=== PATIENT | male | born 1940 | race Caucasian/White ===

== ENCOUNTER 2020-03-21 01:32 | Outpatient (CLI) | payer MEDICARE, OTHER, SELFPAY ==
[2020-03-21 18:31] LABS: SARS-CoV-2 RNA PCR Negative
== END 2020-03-21 01:33 | disposition home or self-care (01) ==
LOC: ANHCOVIDDT 01:32
PROVIDERS: PCP Family Medicine Adolescent Medicine; Visit Provider Internal Medicine Gastroenterology
DX: Z01.812 Encounter for preprocedural laboratory examination (principal); Z20.828 Contact with and (suspected) exposure to other viral communicable diseases
CPT/HCPCS: 87635; C9803; U0003

== ENCOUNTER 2020-03-25 02:47 | Day surgery (SDC) | payer MEDICARE, OTHER, SELFPAY ==
[2020-03-18 11:43] VITALS: BMI 31.8
[2020-03-25 08:17] VITALS: BP 143/87; PULSE 74; RESP 16; TEMP 36.5; O2SAT 99; BMI 32.9
--- NOTE | 2020-03-25 08:27 | P.CONGI_ITS ---
Assessment and Plan Assessment and plan (1) History of colon polyps: Code(s): Z86.010 - Personal history of colonic polyps Status: Acute Assessment and Plan: Patient has a history of adenomatous colon polyps removed in 2014. Additionally his mother has had colon polyps. For these reasons [facility] [place] colonoscopy is recommended in now and 5 year intervals in the future. (2) Family history of colonic polyps: Code(s): Z83.71 - Family history of colonic polyps Status: Acute GI Consult Note Consult date/time: 03/25/20 08:27 HPI: Fred Black is a 79 year old male Presents for follow-up colonoscopy. Patient has a history of several adenomatous colon polyps removed from the colon 2014. Patient states his current weight appetite bowel movements are normal. Patient denies any blood in his stools. Family history is significant his mother had colon polyps. Review of Systems Review of Systems: All systems reviewed & are unremarkable except as noted in HPI and below PMFSH Social History Social History Smoking packs per day: 1.5 Smoking cigarettes per day: 30.0 Years smoked: 15 Smoking pack-years: 22.50 Smoking status: Former smoker Tobacco type: cigarettes Alcohol intake: current Drinks per week: 15 Substance use: never Substance use type: does not use Living arrangements: with family Spiritual care concerns: No Meds Home Medications and Allergies Home Medications Medication Instructions Recorded Confirmed Type aspirin [Aspir-81] 81 mg PO BID 03/18/20 03/25/20 History atorvastatin 40 mg PO DAILY 03/18/20 03/25/20 History fenofibrate 160 mg PO DAILY 03/18/20 03/25/20 History metoprolol tartrate 25 mg PO BID 03/18/20 03/25/20 History omeprazole 40 mg PO DAILY 03/18/20 03/25/20 History Allergies Allergy/AdvReac Type Severity Reaction Status Date / Time No Known Allergies Allergy Unknown Verified 03/25/20 08:16 Vital Signs Vital Signs - 24 hr 03/25/20 08:17 Temperature 97.7 F Pulse Rate 74 Respiratory Rate 16 Blood Pressure 143/87 H Pulse Oximetry 99 Exam Narrative: Exam Narrative: Physical exam reveals patient be alert. Vital signs stable. HEENT exam is unremarkable. Lungs are clear to auscultation and percussion. Heart is without murmur or extra sounds. Abdominal exam bowel sounds are present soft nontender with no organomegaly. Digital external rectal exam is normal.
[2020-03-25] MEDS: LACTATED RINGERS 1,000 ML 150 ML IV CONT (08:31)
--- NOTE | 2020-03-25 08:46 | WPDANESEPPF ---
Anes - Initial Pre Proc Eval Procedure: Operation Date: 03/25/20 09:30 Proposed Procedures p Screening Colonoscopy - Zack Petersen MD Date/Time: 03/25/20 08:46 Surgeon: Zack Petersen MD Pre Op Diagnosis: hx of colon polyps Patient Data Age: 79 Gender: M Height: 5 ft 8 in Weight: 98.3 kg Last Vital Signs Temp 97.7 F 03/25/20 08:17 Pulse 74 03/25/20 08:17 Resp 16 03/25/20 08:17 BP 143/87 H 03/25/20 08:17 Pulse Ox 99 03/25/20 08:17 Allergies Allergy/AdvReac Type Severity Reaction Status Date / Time No Known Allergies Allergy Unknown Verified 03/25/20 08:16 Home Medications Medication Instructions Recorded Confirmed Type aspirin [Aspir-81] 81 mg PO BID 03/18/20 03/25/20 History atorvastatin 40 mg PO DAILY 03/18/20 03/25/20 History fenofibrate 160 mg PO DAILY 03/18/20 03/25/20 History metoprolol tartrate 25 mg PO BID 03/18/20 03/25/20 History omeprazole 40 mg PO DAILY 03/18/20 03/25/20 History Patient hx anesthesia problems: none Family hx anesthesia problems: none PMFSH Past Medical History Medical History (Updated 03/25/20 @ 08:46 by Juan Berry MD) CAD (coronary artery disease) Hyperlipidemia Hypertension Surgical History Surgical History (Updated 03/25/20 @ 08:46 by Juan Berry MD) S/P CABG x 4 Social History Social History Smoking packs per day: 1.5 Smoking cigarettes per day: 30.0 Years smoked: 15 Smoking pack-years: 22.50 Smoking status: Former smoker Tobacco type: cigarettes Alcohol intake: current Drinks per week: 15 Substance use: never Substance use type: does not use Living arrangements: with family Spiritual care concerns: No Anes - Eval Final PreProcedure Day of Procedure 03/25/20 08:46 Patient weight: obese Heart: regular rate and rhythm Lungs: clear to auscultation Airway: Mallampati scale class III Neurological: alert and oriented Last oral intake: >/= 8 hours ASA classification: III Emergent: no Anesthetic plan: proceed Anesthesia type and monitoring: general GIVS and standard monitoring Informed Consent: The patient's anesthetic plan and its attendant risks and benefits were discussed with the patient/family/POA. Questions were solicited and answers provided to the satisfaction of the patient/family/POA.
[2020-03-25 09:12] VITALS: BP 122/63; PULSE 67; RESP 24; O2SAT 97
[2020-03-25 09:22] VITALS: BP 115/56; PULSE 68; RESP 20; O2SAT 98
[2020-03-25 09:32] VITALS: BP 135/76; PULSE 64; RESP 18; O2SAT 98
== END 2020-03-25 09:47 | disposition home or self-care (01) ==
PROVIDERS: PCP Family Medicine Adolescent Medicine; Visit Provider Internal Medicine Gastroenterology
PROC: 0DJD8ZZ Inspection of Lower Intestinal Tract, Via Natural or Artificial Opening Endoscopic (ICD-10-PCS; CPT 45378; principal; 2020-03-25 09:30)
DX: Z12.11 Encounter for screening for malignant neoplasm of colon (principal); D12.2 Benign neoplasm of ascending colon; K57.30 Diverticulosis of large intestine without perforation or abscess without bleeding; K64.8 Other hemorrhoids; Z83.71 Family history of colonic polyps; I10 Essential (primary) hypertension; E78.5 Hyperlipidemia, unspecified; I25.10 Atherosclerotic heart disease of native coronary artery without angina pectoris; Z95.1 Presence of aortocoronary bypass graft; Z87.891 Personal history of nicotine dependence; E66.9 Obesity, unspecified; Z68.33 Body mass index [BMI] 33.0-33.9, adult
CPT/HCPCS: 45385; 87635; 88305; C9803; J2704; J7120; U0003

== ENCOUNTER → 2020-07-28 04:19 | Outpatient (CLI) | payer MEDICARE, OTHER, SELFPAY ==
[2020-07-28 19:03] LABS: SARS-CoV-2 RNA PCR Negative
== END ==
PROVIDERS: PCP Family Medicine Adolescent Medicine; Visit Provider Internal Medicine Cardiovascular Disease
DX: Z01.812 Encounter for preprocedural laboratory examination (principal); Z20.822 Contact with and (suspected) exposure to COVID-19
CPT/HCPCS: C9803; U0003; U0005

== ENCOUNTER 2020-07-31 02:12 | Day surgery (SDC) | payer MEDICARE, OTHER, SELFPAY ==
[2020-07-30 15:55] VITALS: BMI 31.8
[2020-07-31] VITALS (26 sets, daily range): BP systolic 113–167; BP diastolic 57–99; PULSE 53–88; RESP 11–22; TEMP 36.3–37; O2SAT 94–99
[2020-07-31 07:39] LABS: Basophils Absolute Auto 0.1 K/mm3 (0.0-0.1); Basophils Percent Auto 0.7 % (0.2-1.2); Eosinophils Absolute Auto 0.1 K/mm3 (0-0.3); Eosinophils Percent Auto 1.6 % (0-4.4); Hematocrit 41.7 % (42.0-52.0); Hemoglobin 13.8 g/dL (14.0-18.0); Immature Granulocyte Absolute 0.02 K/mm3 (0.00-0.031); Immature Granulocyte Percent A 0.3 % (0-0.5); Lymphocytes Absolute Auto 1.48 K/mm3 (0.9-3.2); Lymphocytes Percent Auto 20.9 % (18.3-44.2); Mean Corpuscular HGB Conc 33.1 g/dl (32-36); Mean Corpuscular Hemoglobin 30.1 pg (26-34); Mean Corpuscular Volume 90.8 fl (80-100); Mean Platelet Volume 10.4 fl (7.4-10.4); Monocytes Absolute Auto 0.7 K/mm3 (0.1-0.6); Monocytes Percent Auto 9.2 % (2.6-8.5); Neutrophils Absolute Auto 4.8 K/mm3 (1.3-6.7); Neutrophils Percent Auto 67.3 % (45.5-73.1); Platelet Count Result 196 k/mm3 (150-375); Red Blood Count 4.59 M/mm3 (4.6-6.20); Red Cell Distribution Width 14.1 % (11.5-14.5); White Blood Count 7.1 K/mm3 (4.5-10.0)
[2020-07-31 07:52] LABS: Anion Gap 4 mmol/L (8-16); Blood Urea Nitrogen 14 mg/dL (9-20); Calcium 9.2 mg/dL (8.4-10.2); Carbon Dioxide 31 mmol/L (22-30); Chloride 105 mmol/L (98-107); Estimated CRCL calculation 47 ml/min; Estimated Glomerular Filt Rate 53; Glucose 121 mg/dL (75-110); Potassium 4.1 mmol/L (3.4-5.0); Sodium 140 mmol/L (137-145)
--- NOTE | 2020-07-31 08:54 | WPDMODSED ---
Moderate Sedation Note-Pt Data Patient Data Diagnosis: Abnormal stress test, CAD, anginal equivalent Present Complaint: fatigue Procedure to be performed/Plan: left heart catheterization with selective left and right coronary angiography with bypass graft angiography, left ventriculography and hemodynamics and possible percutaneous intervention and stent implantation. Allergies Allergy/AdvReac Type Severity Reaction Status Date / Time No Known Allergies Allergy Unknown Verified 07/30/20 16:04 Home Medications Medication Instructions Recorded Confirmed Type aspirin [Aspir-81] 81 mg PO BID 03/18/20 07/30/20 History atorvastatin 40 mg PO DAILY 03/18/20 07/30/20 History fenofibrate 160 mg PO DAILY 03/18/20 07/30/20 History metoprolol tartrate 25 mg PO BID 03/18/20 07/30/20 History omeprazole 40 mg PO DAILY 03/18/20 07/30/20 History doxylamine succinate [Sleep Aid 25 mg PO DAILY 07/30/20 07/30/20 History (doxylamine)] nitroglycerin 0.4 mg SUBLINGUAL PRN PRN 07/30/20 07/30/20 History Current Medications: Active Medications Sodium Chloride (Normal Saline Iv) 500 mls @ 100 mls/hr IV CONT .Q5H JANETH Sedation/Anesthesia: No previous sedation/anesthesia problems (including family history). [facility] Past Medical History Medical History CAD (coronary artery disease) Hyperlipidemia Hypertension Surgical History Surgical History S/P CABG x 4 Social History Social History Smoking packs per day: 1.5 Smoking cigarettes per day: 30.0 Years smoked: 15 Smoking pack-years: 22.50 Smoking status: Former smoker Tobacco type: cigarettes Alcohol intake: current Drinks per week: 15 Alcohol use details: patient states he drinks 3 beers/day Substance use: never Substance use type: does not use Living arrangements: with family Gender identity (if verbalized by the patient): Male Sexual Orientation (if Verbalized by the Patient): Straight or Heterosexual Spiritual care concerns: No Mod Sed Physical Exam Physical Exam Pre Procedural Exam: Normal: Appearance, Eyes, Ears, Nose, Neck ( supple, normal range of motion), Throat ( posterior hypopharynx clear, nonerythematous), Airway ( normal anatomy, no obstruction), Lungs ( Clear to auscultation bilaterally), Heart Size, Heart Rate, Heart Rhythm, Neuro Exam, Abdomen, Liver, Extremities and Skin Hours since solid foods: 12 Hours since liquid intake: 12 Internal Medicine - PN: Obj Da Vital Signs Vital Signs: Vital Signs - 24 hr 07/31/20 07:21 Temperature 36.3 C L Pulse Rate 73 Respiratory Rate 12 Blood Pressure 151/74 H Pulse Oximetry 98 Meds/Results Medications: Active Medications Generic Name Dose Route Start Last Admin Trade Name Freq PRN Reason Stop Dose Admin Sodium Chloride 500 mls @ 100 mls/hr 07/31/20 07:00 Normal Saline Iv IV CONT .Q5H JANETH Labs CBC & Chem 7: 07/31/20 07:22 07/31/20 07:22 Labs: Laboratory Results - last 24 hr 07/31/20 07/31/20 07:22 07:22 WBC 7.1 RBC 4.59 L Hgb 13.8 L Hct 41.7 L MCV 90.8 MCH 30.1 MCHC 33.1 RDW 14.1 Plt Count 196 MPV 10.4 Immature Gran % (Auto) 0.3 Neut % (Auto) 67.3 Lymph % (Auto) 20.9 [place] % (Auto) 9.2 H Eos % (Auto) 1.6 Baso % (Auto) 0.7 Lymph # (Auto) 1.48 [place] # (Auto) 0.7 H Eos # (Auto) 0.1 Baso # (Auto) 0.1 Abs Immat Gran (auto) 0.02 Absolute Neuts (auto) 4.8 Absolute Nucleated RBC 0.0 Nucleated RBC % 0.0 Sodium 140 Potassium 4.1 Chloride 105 Carbon Dioxide 31 H Anion Gap 4 L BUN 14 Creatinine 1.30 Estim Creat Clear Calc 47 Estimated GFR 53 L Glucose 121 H Calcium 9.2 ASA Classification/Sedation ASA Classification/Sedation ASA Class: III Emergent: No Risks: Risks, benefits and
--- NOTE | 2020-07-31 08:55 | WPDHPUPDATE1 ---
History and Physical Update Update Date/Time: 07/31/20 08:55 History and Physical has been reviewed, including an updated exam of the patient. There are NO changes in the patient's condition. Risks, benefits, and alternatives have been discussed and questions answered. Patient agrees to proceed with procedure.
--- NOTE | 2020-07-31 08:56 | PM.PROC ---
Procedure Note - Detailed Date of procedure: 07/31/20 Pre-op diagnosis: abnormal stress test CAD, anginal equivalent Post-op diagnosis: same ( CAD status post CABG, abnormal stress) Procedure performed: left heart catheterization with selective left and right coronary angiography with bypass graft angiography, left ventriculography and hemodynamics Description of procedure: BRIEF HISTORY OF PRESENT ILLNESS: Patient is a pleasant 80-year-old white male with a past medical history significant for 3 vessel CABG 2009 PAULINO to LAD, SVG to OM, SVG to RCA, hypertension, dyslipidemia with progressive complaints of exertional dyspnea, fatigue and decreased exercise tolerance but without chest pain. He underwent noninvasive ischemic evaluation with EF 54% with apical, apical anterior hypokinesis with [id number] reversible ischemia apex, apical anterior, apical lateral, apical septal delatorre referred for coronary angiography for delineation of coronary anatomy and bypass graft patency. PROCEDURES PERFORMED: 1. Left heart catheterization 2. Selective left and right coronary angiography 3. Bypass graft angiography 3. Left ventriculography and hemodynamics 4. Moderate/conscious sedation administration CATHETERS UTILIZED: Left coronary system- 5 [place] JL4 catheter Right coronary system- 5 [place] JR4 catheter Left ventriculography and hemodynamics- 5 [place] angled pigtail catheter PROCEDURE IN DETAIL: After verbal and written informed consent was obtained the patient, risks, benefits, and alternatives explained in detail the patient agreed to proceed with the plan of care as outlined above. The patient was subsequently brought to the cardiac catheterization lab, placed on the cardiac catheterization table, and prepped and draped in the usual sterile fashion. Utilizing approximately 16cc of 1% subcutaneous Lidocaine, the right groin was then locally anesthetized. Utilizing the modified Seldinger technique, a 5 [place] arterial vascular access sheath was inserted in the right common femoral artery easily and without complications. Through this access, coronary angiography was subsequently obtained in multiple standard re-projections. Following this, a 5 [place] angled pigtail catheter was advanced retrograde across aortic valve into the cavity of the left ventricle. Left ventriculography was performed and pullback across aortic valve was subsequently recorded. The vascular access sheath and angiographic catheters were flushed before and after catheter exchanges. At the conclusion of the diagnostic portion of the procedure, all angiographic guidewires and catheters were removed and the 5 [place] arterial vascular access sheath was then pulled and satisfactory hemostasis was achieved using manual compression. There no complications noted at the conclusion of the diagnostic portion of the study. MODERATE SEDATION/ANESTHESIA ADMINISTRATION: Patient reports no prior problems with sedation/anesthesia. Please see pre-sedation noted for physical examination documentation. Sedation start time was 0906 and end time was 1018 for a total intra-service/procedure face-face time of 72 minutes. A total of 2 mg intravenous Versed and a total of 50 mcg intravenous Fentanyl in multiple divided doses was administered for moderate sedation. Moderate sedation was administered by qualified/certified observer Skye Birmingham RN under my supervision with intra-procedure [id number] observation and management throughout the entirety of the procedure. There were no other issues or complications and patient tolerated the procedure well. See post-anesthesia documentation. Anesthesia: local and other ( conscious/moderate sedation) Surgeon: Juice Agudelo MD Drains: No Packing: No Pathology: none sent Complications: No immediate complications Condition: stable Disposition: same day Findings: CORONARY ANGIOGRAPHY: The LEFT MAIN arose from the left coronary cusp and was without
[2020-07-31] MEDS: SODIUM CHLORIDE 0.9% IV 1,000 ML 125 ML IV CONT (10:30)
--- NOTE | 2020-07-31 10:57 | ECG_ITS ---
Measurements Intervals [place] Rate: 58 P: 41 ID: 215 QRS: -3 QRSD: 113 T: 24 QT: 426 QTc: 419 Interpretive Statements SINUS BRADYCARDIA WITH FIRST DEGREE AV BLOCK INCOMPLETE RIGHT BUNDLE BRANCH BLOCK ABNORMAL ECG Electronically Signed On 07-31-2020 15:55:17 CDT by Herson Simental D.O.
--- NOTE | 2020-07-31 11:02 | WPDCARDPROC ---
Cardiac Cath Procedure Note Date of procedure:: 07/31/20 Performing physician:: Alex Thomas MD Indication:: Coronary artery disease, chest pain, abnormal nuclear stress test Brief clinical history:: this is a 80-year-old man with multivessel coronary disease with previous bypass grafting in the remote past. He underwent an angiogram a short time ago by Dr. Agudelo. the exam demonstrated a high-grade stenosis in the distal anastomosis of his vein graft to his distal OM circumflex branch. PCI of this lesion was requested. Procedure Procedure performed:: PCI (BRENT) to distal circumflex vein graft anastomosis. Sedation/Medication given:: No additional sedation given Access site:: right femoral artery Estimated blood loss:: 15-20 cc Procedure note:: I entered the r&d lab technician the patient was already on the table from the diagnostic angiogram. The 5 [place] sheath was changed out over a guidewire for a 6 [place] sheath. The patient then received aspirin, 600 mg of oral clopidogrel and was anticoagulated with Angiomax for this intervention. I engaged the saphenous vein graft to the circumflex using a 6 [place] JR4 guiding catheter. I used a 0.014 BMW coronary guidewire to traverse the length of the graft the distal anastomosis and advance the wire into the OM branch. Following this I pre-dilated the stenosis with a 2.0 mm by 15 mm emerge PTCA balloon. The lesion was rather firm and took 12 atmospheres of pressure to resolve the stenosis. The balloon was then withdrawn and I advanced a 2.5 x 13 mm Orsiro drug-eluting stent to the target lesion deployed at nominal pressures and follow-up angiogram shows the lesion to be widely patent there is no residual stenosis disruption dissection or distal embolization. There was AMBER 3 flow in vein graft and in the OM branch to which it is anastomosed following the PCI. Findings:: As above Conclusion:: 1. successful PCI deploying Orsiro drug-eluting stent to the site of the distal anastomosis of the saphenous vein graft into the distal OM branch as detailed above. Procedure was angiographically successful with no residual stenosis at the site of the target lesion. Alex Thomas MD [facility]
--- NOTE | 2020-07-31 16:02 | SUR.PHASEII ---
Continued documentation in PCS, for extended recovery post PCI.
--- NOTE | 2020-07-31 17:32 | ADMGEN ---
This patient, Fred Black, was admitted to IMU Room 200-01. Patient/family oriented to hospital policies and general routines including ID bracelet, bed and alarms, visiting hours, pain management, procedures, bathroom and other care routines, personal items, smoking policy, room service/diet, and visiting hours. Information on how to activate the Rapid Response Team has been discussed. Patient/Family are encouraged to report perceived risks to care and to ask questions if they do not understand what they are told or what they should do.
[2020-07-31] MEDS: METOPROLOL TARTRATE 25 MG TABLET PO (23:01)
[2020-08-01] VITALS (8 sets, daily range): BP systolic 127–131; BP diastolic 55–71; PULSE 60–82; RESP 18–24; TEMP 35.9–36.2; O2SAT 99–100
[2020-08-01 04:58] LABS: Hematocrit 37.1 % (42.0-52.0); Hemoglobin 12.4 g/dL (14.0-18.0); Mean Corpuscular HGB Conc 33.4 g/dl (32-36); Mean Corpuscular Hemoglobin 30.2 pg (26-34); Mean Corpuscular Volume 90.5 fl (80-100); Platelet Count Result 173 k/mm3 (150-375); Red Cell Distribution Width 13.9 % (11.5-14.5); White Blood Count 8.5 K/mm3 (4.5-10.0)
--- NOTE | 2020-08-01 05:11 | ECG_ITS ---
Measurements Intervals [place] Rate: 76 P: 7 [place]: 183 QRS: -3 QRSD: 88 T: 12 QT: 404 QTc: 455 Interpretive Statements SINUS RHYTHM ATRIAL AND VENTRICULAR PREMATURE COMPLEXES AND VENTRICULAR BIGGEMINY LEFT VENTRICULAR HYPERTROPHY WITH ST-T CHANGE ABNORMAL ECG Electronically Signed On 08-01-2020 9:23:03 CDT by Herson Simental D.O.
[2020-08-01 05:16] LABS: Anion Gap 4 mmol/L (8-16); Blood Urea Nitrogen 15 mg/dL (9-20); Calcium 8.7 mg/dL (8.4-10.2); Carbon Dioxide 30 mmol/L (22-30); Chloride 104 mmol/L (98-107); Estimated CRCL calculation 50 ml/min; Estimated Glomerular Filt Rate 59; Glucose 107 mg/dL (75-110); Sodium 138 mmol/L (137-145)
[2020-08-01] MEDS: FENOFIBRATE 160 MG TABLET PO (09:12)
[2020-08-01] MEDS: ATORVASTATIN 40 MG TABLET PO (09:12)
[2020-08-01] MEDS: PANTOPRAZOLE 40 MG TABLET PO (09:12)
[2020-08-01] MEDS: CLOPIDOGREL BISULFATE 75 MG TABLET PO (09:12)
[2020-08-01] MEDS: METOPROLOL TARTRATE 25 MG TABLET PO (09:12)
[2020-08-01] MEDS: ASPIRIN 81 MG CHEWABLE TABLET PO (09:12)
--- NOTE | 2020-08-01 09:30 | PM.PNCARD ---
Progress Note: A&P Assessment and Plan (1) CAD (coronary artery disease): Code(s): I25.10 - Atherosclerotic heart disease of [place] coronary artery without angina pectoris Status: Inactive Assessment and Plan: Stable, asymptomatic. Status post 2.5 x 13 mm Orsiro BRENT to [place] OM2 without complication. Continue dual antiplatelet therapy. Aggressive medical risk modification. Stable and improved condition. Discharge home today follow up as scheduled as an outpatient. Post intervention precautions reviewed in detail. All questions answered to his satisfaction. Discussed the absolute importance of compliance with dual antiplatelet therapy without interruption under any circumstances. Monitor for bleeding. (2) Status post coronary artery bypass graft: Code(s): Z95.1 - Presence of aortocoronary bypass graft Status: Acute Assessment and Plan: Three of 3 patent bypass grafts (3) Status post coronary artery stent placement: Code(s): Z95.5 - Presence of coronary angioplasty implant and graft Status: Acute Assessment and Plan: As above. (4) Hyperlipidemia: Code(s): E78.5 - Hyperlipidemia, unspecified Status: Inactive Assessment and Plan: Statin therapy. (5) Hypertension: Code(s): I10 - Essential (primary) hypertension Status: Inactive Assessment and Plan: Controlled. Continue current medical therapy. Subjective Date/time seen: Date of service: 08/01/20 09:30 Follow-up for CAD status post percutaneous intervention and stent implantation to [place] circumflex/OM2 No issues overnight. Had difficulty sleeping due to the discomfort in the bed. No chest pain, shortness of breath. No dizziness. Tolerating medications. No bleeding. No other concerns. No fevers or chills. Ambulating without difficulty. Review of Systems Review of Systems: All systems reviewed & are unremarkable except as noted in HPI and below Constitutional: Constitutional: Reports as per HPI and Reports no additional constitutional complaints Eyes: Eyes: Reports as per HPI and Reports no additional eye complaints ENT: Reports system reviewed and no additional complaints, except as documented and Reports as per HPI Cardiovascular: Cardiovascular: Reports as per HPI and Reports no additional cardiovascular complaints Respiratory: Respiratory: Reports as per HPI and Reports no additional respiratory complaints Gastrointestinal: Gastrointestinal: Reports as per HPI and Reports no additional gastrointestinal complaints Genitourinary: Genitourinary: Reports no additional male genitourinary complaints and Reports as per HPI Musculoskeletal: Musculoskeletal: Reports no additional musculoskeletal complaints and Reports as per HPI Integumentary/Breasts: Skin/Breast: Reports system reviewed and no additional complaints, except as docu and Reports as per HPI Neurologic: Reports system reviewed and no additional complaints, except as documented and Reports as per HPI Psychiatric: Psychiatric: Reports no additional psychiatric complaints and Reports as per HPI Endocrine: Endocrine: Reports no additional endocrine complaints and Reports as per HPI Hematologic/Lymphatic: Hematologic/Lymphatic: Reports no additional hematologic/lymphatic complaints and Reports as per HPI Allergic/Immunologic: Allergic/Immunologic: Reports no additional allergic/immunologic complaints and Reports as per HPI Exam Narrative: Exam Narrative: General: Well developed, alert and oriented x3. No apparent distress, comfortable, pleasant, and cooperative. Head: atraumatic, normocephalic Eyes: EOM intact, sclerae anicteric, conjunctivae unremarkable Ears/Nose: external inspection of ears and nose were grossly normal Mouth/Throat: oral mucosa pink and moist Neck: supple, normal range of motion, no jugular venous distention or carotid bruits, thyroid nonpalpable, trachea midline. Cardiac:
--- NOTE | 2020-08-01 09:50 | PM.DS ---
DS: Admitting Diagnosis Admitting Diagnosis Admitting Diagnosis: Abnormal stress test, CAD, anginal equivalent DS: Discharge Diagnosis Discharge Diagnosis (1) Status post coronary artery bypass graft: Code(s): Z95.1 - Presence of aortocoronary bypass graft Status: Acute (2) Status post coronary artery stent placement: Code(s): Z95.5 - Presence of coronary angioplasty implant and graft Status: Acute (3) CAD (coronary artery disease): Code(s): I25.10 - Atherosclerotic heart disease of [place] coronary artery without angina pectoris Status: Acute (4) Hyperlipidemia: Code(s): E78.5 - Hyperlipidemia, unspecified Status: Acute (5) Hypertension: Code(s): I10 - Essential (primary) hypertension Status: Acute DS: Summary Hospital Course Reason for hospitalization: Abnormal stress test, CAD, anginal equivalent elective coronary angiogram Hospital Course: Patient was brought in as an outpatient for elective coronary angiogram due to abnormal stress test suggestive of apical anterior, apical septal, apical lateral ischemia progressive exercise intolerance, exertional dyspnea and fatigue. Coronary angiogram revealed 3 of 3 patent bypass grafts with severe 3 vessel [place] disease with FLOORING SALESP[employer] of LAD, circumflex, and RCA. There was a 90% stenosis in the [place] OM 2 just distal to the anastomosis of the SVG to OM. Patient underwent successful stent implantation with a 2.5 x 13 mm Conjecta BRENT without complication. Patient was observed overnight without issue. Right groin was soft, without bruit, hematoma or bleeding complications. He had no anginal symptoms and was feeling improved. Patient was stable and improved for discharge home. Post cardiac catheterization precautions were reviewed in detail. His avoid sexual activity or strenuous activity for 1-2 weeks. Status at Discharge Cognitive/behavioral status at discharge: Competent Functional status at discharge: independent ambulation Overall status at discharge: patient is back to baseline Time Spent with Patient Time attestation: Total time spent providing and/or coordinating discharge services: 32 minutes Time spent: Greater than 30 minutes Exam Narrative: Exam Narrative: General: Well developed, alert and oriented x3. No apparent distress, comfortable, pleasant, and cooperative. Head: atraumatic, normocephalic Eyes: EOM intact, sclerae anicteric, conjunctivae unremarkable Ears/Nose: external inspection of ears and nose were grossly normal Mouth/Throat: oral mucosa pink and moist Neck: supple, normal range of motion, no jugular venous distention or carotid bruits, thyroid nonpalpable, trachea midline. Cardiac: Regular rate and rhythm, normal S1-S2, no murmurs, clicks, gallops, or rubs. Lungs: Clear to auscultation bilaterally, no rales, wheezes, or rhonchi. Abdomen: Soft, nontender, nondistended, positive bowel sounds throughout. No appreciable hepatosplenomegaly, no rebound guarding or rigidity noted. Abdominal aorta nonpalpable, no appreciable bruits. Extremities: No edema, clubbing, and or cyanosis. Extremities warm and well perfused. Right femoral arterial access site soft, no hematoma or bruising. 2+ femoral pulse no bruit 2+ DP pulse. Skin: Warm and dry without ecchymoses, rashes, and/or petechiae. Musculoskeletal: Muscle strength and tone intact throughout without obvious deformities. Vascular: Carotid upstrokes 2+ bilaterally, radial pulses 2+ bilaterally, dorsalis pedis pulses 2+ bilaterally Neurologic: Cranial nerves 2-12 grossly intact, examination grossly nonfocal Pscyhiatric: Mood calm and appropriate. DS: Data Data Completed and Pending Labs on day of discharge: Labs from last 24 hours 08/01/20 08/01/20 04:14 04:14 WBC 8.5 RBC 4.10 L Hgb 12.4 L Hct 37.1 L MCV 90.5 MCH 30.2 MCHC 33.4 RDW 13.9 Plt Count 173 MPV 11.0 H Sodium 138 Pot
--- NOTE | 2020-08-01 12:06 | PC.NURSE ---
Patient discharged 08/01/20 at 11:27 via wheelchair to spouse's car. No complaints of chest pain or shortness of breath at this time. Medication education and follow-up instructions were explained and patient has no further questions at this time.
== END 2020-08-01 11:34 | disposition home or self-care (01) ==
LOC: ANHCATHLAB 06:51 → ANHCPC 16:14 → ANHIMU 17:34
PROVIDERS: Specialist; PCP Family Medicine Adolescent Medicine; Visit Provider Internal Medicine Cardiovascular Disease
PROC: 4A023N7 Measurement of Cardiac Sampling and Pressure, Left Heart, Percutaneous Approach (ICD-10-PCS; CPT 93452; principal; 2020-07-31 08:30)
PROC: (CPT 92928; 2020-07-31 08:30)
DX: I25.10 Atherosclerotic heart disease of native coronary artery without angina pectoris (principal); R94.39 Abnormal result of other cardiovascular function study; Z79.82 Long term (current) use of aspirin; E78.5 Hyperlipidemia, unspecified; I10 Essential (primary) hypertension; Z87.891 Personal history of nicotine dependence; Z95.1 Presence of aortocoronary bypass graft
CPT/HCPCS: 36415; 80048; 85025; 85027; 93005; 93458; A9270; C1725; C1769; C1874; C1887; C1894; C9600; C9803; J0461; J0583; J1644; J2250; J3010; J7030; J7040; U0003; U0005

== ENCOUNTER 2020-12-10 08:30 | Outpatient (RCR) | payer MEDICARE, OTHER, SELFPAY ==
[2020-09-18 09:04] VITALS: PULSE 60
== END 2020-12-10 11:31 | disposition home or self-care (01) ==
LOC: ANHCPREHAB 08:30
PROVIDERS: PCP Family Medicine Adolescent Medicine; Visit Provider Nurse Practitioner Adult Health
DX: Z95.5 Presence of coronary angioplasty implant and graft (principal)
CPT/HCPCS: 93798

== ENCOUNTER 2022-02-22 14:17 | Outpatient (CLI) | payer MEDICARE, OTHER, SELFPAY ==
--- NOTE | ~2022-02-22 | US_ITS ---
EXAMINATION: US art doppler w deepti PANTOJA DATE: 02/22/2022 15:36 INDICATION: Claudication in the bilateral lower limbs TECHNIQUE: Segmental pressures and plethysmographic and Doppler waveforms of the brachial and lower e xtremity arteries were obtained. COMPARISON: None. FINDINGS: Right and left brachial artery pressures of 157 mm Hg and 145 mm Hg, respectively, are concordant (no rmal difference <= 30 mmHg). The right and left high-thigh pressure indices are unable to be obtained due to inability to occlude the vessels. Bilateral ankle-brachial indices (STACI) are also unable to b e obtained due to inability to occlude the vessels at either ankle. The right great toe-brachial index (TBI) is 0.39 (normal >= 0.6-0.8). Arterial waveforms are biphasi c with brisk systolic upstrokes throughout the arteries of the right lower limb. The left TBI is 0.83. Arterial waveforms are biphasic with brisk systolic upstrokes throughout the ar teries of the left lower limb. IMPRESSION: 1. Arterial occlusive disease to the right lower limb with moderately decreased right TBI with normal left TBI. Of note many of the vessels in the bilateral lower limbs were unable to be occluded which could be due to vessel wall calcification. Reviewed, dictated and finalized at location B. IMPRESSION: 1. Arterial occlusive disease to the right lower limb with moderately decreased right TBI with normal left TBI. Of note many of the vessels in the bilateral l ower limbs were unable to be occluded which could be due to vessel wall calcifi cation.
== END 2022-02-22 14:18 | disposition home or self-care (01) ==
PROVIDERS: PCP Family Medicine Adolescent Medicine; Visit Provider Internal Medicine Cardiovascular Disease
DX: I73.9 Peripheral vascular disease, unspecified (principal)
CPT/HCPCS: 93923

== ENCOUNTER 2024-08-22 00:45 | Day surgery (SDC) | payer MEDICARE, OTHER, SELFPAY ==
[2024-08-21 09:11] VITALS: BMI 27.3
--- NOTE | 2024-08-21 14:14 | WPDANESEPPF ---
Anes - Initial Pre Proc Eval Procedure: Operation Date: 08/22/24 11:30 Proposed Procedures p Esophagogastroduodenoscopy - Jerome Carias MD Date/Time: 08/21/24 14:14 Surgeon: Jerome Carias MD Pre Op Diagnosis: Gastro-esophageal reflux disease without esophagit Patient Data Age: 84 Gender: M Height: 1.73 m Weight: 81.7 kg Allergies Allergy/AdvReac Type Severity Reaction Status Date / Time No Known Allergies Allergy Unknown Verified 08/22/24 10:45 Home Medications ?Medication ?Instructions ?Recorded ?Confirmed ?Type aspirin 81 mg tablet,delayed 81 mg PO BID 03/18/20 08/22/24 History release atorvastatin 40 mg tablet 40 mg PO DAILY 03/18/20 08/22/24 History fenofibrate 160 mg tablet See Rx Instructions .Route 01/30/24 08/22/24 Rx .COMPLEX #90 tabs alprazolam 0.5 mg tablet (Xanax) 0.25 mg (1/2 x 0.5 mg) PO HS PRN 06/18/24 08/21/24 Rx Sleep, anxiety 30 days #15 tabs doxylamine succinate 25 mg tablet 25 mg PO QHS PRN sleep 06/18/24 08/21/24 History (Nighttime Sleep-Aid (doxylamine)) metoprolol succinate 25 mg 25 mg PO DAILY #90 tabs 06/18/24 08/22/24 Rx tablet,extended release 24 hr (Toprol XL) omeprazole 40 mg capsule,delayed 40 mg PO DAILY 90 days #90 caps 07/17/24 08/22/24 Rx release lisinopril 2.5 mg tablet 2.5 mg PO DAILY #30 tabs 07/19/24 08/22/24 Rx escitalopram oxalate 5 mg tablet See Rx Instructions .Route 08/06/24 08/22/24 Rx .COMPLEX #90 tabs famotidine 20 mg tablet (Acid 20 mg PO DAILY 08/21/24 08/22/24 History Controller) Patient hx anesthesia problems: none Family hx anesthesia problems: none Results Review: All pre-operative results and documents have been reviewed as part of the pre-operative evaluation. [facility] Past Medical History Medical History (Updated 08/21/24 @ 14:14 by Jose L Mann DO) PVC (premature ventricular contraction) Family history of colonic polyps GERD (gastroesophageal reflux disease) Depression CAD (coronary artery disease) Hyperlipidemia History of colon polyps Surgical History Surgical History (Updated 08/21/24 @ 14:14 by Jose L Mann DO) History of coronary artery stent placement 2020 S/P CABG x 4 (2008) Family History Family History Sibling Diabetes mellitus Father Pancreatic cancer Mother Alzheimer disease Social History Social History (Updated 08/22/24 @ 10:56 by Jose L Mann DO) Smoking packs per day: 1 Smoking cigarettes per day: 20.0 Years smoked: 20 Smoking pack-years: 20.00 Smoking status: Never smoker Tobacco type: cigarettes Alcohol intake: former Drinks per week: 15 Alcohol use details: patient states he drinks 3 beers/day, quit 2023 Substance use: never Substance use type: does not use Living arrangements: alone Gender identity (if verbalized by the patient): Male Sexual Orientation (if Verbalized by the Patient): Straight or Heterosexual Spiritual care concerns: No Anes - Eval Final PreProcedure Day of Procedure 08/21/24 14:14 Patient weight: overweight Heart: regular rate and rhythm Lungs: clear to auscultation Airway: Mallampati scale class II Neurological: alert and oriented Last oral intake: >/= 8 hours ASA classification: III Emergent: no Anesthetic plan: proceed Anesthesia type and monitoring: general GIVS and standard monitoring Results Review: All pre-operative results and documents have been reviewed as part of the pre-operative evaluation. Informed Consent: The patient's anesthetic plan and its attendant risks and benefits were discussed with the patient/family/POA. Questions were solicited and answers provided to the satisfaction of the patient/family/POA.
--- OUTSIDE RECORDS SUMMARY | 2024-08-22 00:48 | XMS_ITS | Clinical Summary ---
Author Organization [facility] [place] [address] Address [address] [place] [address] Care Team Providers Care Diamond Broker Name Role Phone Michi Sanchez MD Primary Care Prov ider Allergies No known active allergies Medications nitroglycerin (NITROSTAT) 0.[address] 1 tablet (0.4MG) by sublingual route at the 1st sign of attack; may repeat every 5 min until relief; if pain persists after 3 tablets in 15 min, prompt medical attention is recommended 0 2 Active fenofibrate (TRIGLIDE) 160 mg tablet take 1 tablet (160MG) by oral route every day 0 2 Active omega-3 fatty acids/fish oil (OMEGA 3 FISH OIL ORAL) Take 1,000 mg by mouth Active aspirin 81 mg chewable tabletIndicati ons:Coronary artery disease involving resighini coronary artery of resighini heart without angina pectoris Take 1 tablet (81 mg total) by mouth nightly 0 1 Active ALPRAZolam (XANAX) 0.5 mg tablet 0.5 tablets (0.25 mg total) [address] (PROTONIX) 40 mg EC tablet 4 Active atorvastatin (LIPITOR) 40 mg tablet TAKE 1 TABLET DAILY 90 tablet 2 5 Active escitalopram (LEXAPRO) 5 mg tablet Take 1 tablet (5 mg total) by mouth daily 5 Active lisinopriL (PRINIVIL,ZEST RIL) 2.5 mg tablet 5 Active metoprolol XL (TOPROL-XL) 25 mg extended release tablet Take 1 tablet (25 mg total) by mouth daily 5 Active metoprolol tartrate (LOPRESSOR) 25 mg immediate release tablet TAKE 1 TABLET BY MOUTH TWICE A DAY 180 tablet 3 5 08/21/19 25 Discontin ued(Patie nt Reported) Active Problems Problem Noted Date Diagnosed Date Atherosclerosis of resighini ar alissa of both lower extremities with intermittent claudication 03/09/2022 PVD (peripheral vascular disease) 02/08/2022 Assessment & Plan (03/09/2022 5:10 PM SAFETY SUPERVISOR): Impression: Patient complains of burning pain to bilateral calves, left lower extremity is worse than the right after walking approximately 100 yd that is relieved with rest. Patient's symptoms occurred approximately 1 year ago. Bilateral lower extremities are warm, well perfused with palpable bilateral femoral pulses and diminished distal pulses. No open ulcerations are noted. Plan: We will obtain lower extremity arterial Doppler within 1-2 weeks. We will call patient with results. Advised patient if Doppler results are concerning, we will require follow-up appointment otherwise patient can follow-up in 6 months for re-evaluation with repeat arterial Doppler. Mixed hyperlipidemia 05/13/2021 Assessment & Plan (03/09/2022 5:10 PM SAFETY SUPERVISOR): Impression: Chronic stable hyperlipidemia, controlled with statin therapy. Plan: Continue statin therapy as per primary care provider. S/P coronary artery stent placement 01/06/2021 Facet arthritis of lumbar region 03/27/2018 Lumbar disc herniation 03/27/2018 Coronary artery disease invo lving resighini coronary artery of resighini heart without angina pectoris 07/13/2016 Overview (09/16/2016): Coronary artery disease involving resighini coronary artery of resighini heart without angina pectoris History of coronary artery bypass surgery 2016 Overview (09/16/2016): S/P CABG (coronary artery bypass graft) Benign hypertension 07/13/2016 Overview (09/16/2016): HTN (hypertension), benign Assessment & Plan (03/09/2022 5:10 PM SAFETY SUPERVISOR): Impression: Chronic hypertension, controlled medications. Blood pressure stable. Plan: Continue blood pressure management as per primary care provider. Resolved Problems Problem Noted Date Diagnosed Date Resolved Date Dyslipidemia 07/13/2016 05/13/2021 Overview (09/16/2016): Dyslipidemia Encounters Date Type Department Care Team Description 08/21/2024 Telephone [facility] Cardiology [address] [place] [address] Alex Thomas MD 08/20/2024 1:45 PM CDT Office Visit [facility] Cardiology [address] [place] [id number] Alex Thomas MD Coronary artery disease involving resighini coronary artery of resighini heart without angina pectoris (Primary Dx); History of coronary artery bypass surgery; S/P coronary artery stent placement from Last 3 Months Immunizations Immunization Administration Dates Next Due Influenza, Trivalent, Preservative Free, Intramu scular 02/23/2016 Pfizer SARS-CoV-2 Monovalent Vaccination (12+ Yrs) PURPLE 06/19/2020 Surgical History Surgery Date Site/Laterality Comments CORONARY ARTERY BYPASS GRAFT 2008 Coronary Artery Bypass Graft Medical History Medical History Date Comments Chronic coronary artery disease Coronary Artery Disease Hypertension Hypertension Covid Hyperlipidemia Family History Medical History Relation Name Comments Pancreatic cancer Father Alzheimer's disease Mother Heart attack Mother's Brother 2 Myocardia l Infarction; Relation Name Status Comments Father Mother Mother's Brother 1 Alive Mother's Brother 2 Social History Tobacco Use Types Packs/Day Years Used Date Smoking Tobacco: Former Cigarettes Q uit: 1975 Smokeless Tobacco: Never Tobacco Cessation:Counseling Given: Not Answered Alcohol Use Standard Drinks/Week Comments Yes 0 (1 standard drink = 0.6 oz pur e alcohol) Sex and Gender Information Value Date Recorded Sex Assigned at Not on file Legal Sex Male 9:30 AM SAFETY SUPERVISOR Gender Identity Not on file Sexual Orientation Not on file Obstetrics History Last Filed Vital Signs Vital Sign Reading Time Taken Comments Blood Pressure 124/62 08/20/2024 1:41 PM CDT Pulse 78 08/20/2024 1:41 PM CDT Temperature - - Respiratory Rate 18 02/04/2020 1:33 PM CDT Oxygen Saturation 98% 08/20/2024 1:41 PM CDT Inhaled Oxygen Concentration - - Weight 83.8 kg (184 lb 11.2 oz) 08/20/2024 1:41 PM CDT Height 172.7 cm (5' 8 ) 08/20/2024 1:41 PM CDT Body Mass Index 28.08 08/20/2024 1:41 PM CDT Plan of Treatment Health Maintenance Due Date Last Done Comments Depression Screening 1942 Fall Risk Assessment 1942 DTaP/Tdap/Td Vaccine (1 - Tdap) 1953 Hepatitis B Screening 1960 Pneumococcal vaccine 65+ (1 of 1 - PCV) 1992 Zoster Vaccine (1 of 2) 1992 Abdominal Aortic Aneurysm (AAA) Screen 2007 Well Visit 65+ 2007 Covid-19 Vaccine ( - season) 2023 Influenza Vaccine (Season Ended) 2024 02/23/20 16 Insurance [facility] MEDICARE ADVANTAGE [facility] CHOICE PLUS [facility] CHOICE PLUS [facility] MEDICARE ADVANTAGE Care Teams Diamond Broker Relationship Specialty Start Date End Date Michi Sanchez MD [address] [place] [address] PCP - General 07/22/16
--- OUTSIDE RECORDS SUMMARY | 2024-08-22 00:48 | XMS_ITS | Clinical Summary ---
Author Organization [facility] Address [facility] [place] [address] Care Team Providers Care Field Cane Scaler Helper Name Role Phone Michi Sanchez MD Primary Care Provider +1- [phone] Allergies No known active allergies Medications aspirin 81 MG chewable tablet 03/08/2012 Act jesús atorvastatin 40 MG tablet 10/16/2017 Active fenofibrate 160 MG tablet 03/08/2012 Active metoprolol tartrate 25 MG tablet 08/07/2017 Active omeprazole 20 MG capsule 01/09/2013 Active ibuprofen 200 MG tablet Take 200 mg by mouth every 6 (six) hours as needed for Pain. Active Active Problems Problem Noted Date Diagnosed Date Lumbar disc herniation 03/27/2018 Facet arthritis of lumbar region 03/27/2018 Social History Tobacco Use Types Packs/Day Years Used Date Smoking Tobacco: Never Smokeless Tobacco: Never Alcohol Use Standard Drinks/Week Comments Yes 0 (1 standard drink = 0.6 oz pur e alcohol) socially Sex and Gender Information Value Date Recorded Sex Assigned at Not on file Legal Sex Male 4:05 PM CDT Gender Identity Not on file Sexual Orientation Not on file Last Filed Vital Signs Vital Sign Reading Time Taken Comments Blood Pressure 160/72 05/24/2018 10:59 AM FILM SOUND COORDINATOR Pulse 88 05/24/2018 10:59 AM FILM SOUND COORDINATOR Temperature 36.2 C (97.2 F) 05/09/2018 12:53 PM FILM SOUND COORDINATOR Respiratory Rate 18 05/09/2018 1:59 PM FILM SOUND COORDINATOR Oxygen Saturation 99% 05/09/2018 1:59 PM FILM SOUND COORDINATOR Inhaled Oxygen Concentration - - Weight 96.5 kg (212 lb 12.8 oz) 019 10:59 AM FILM SOUND COORDINATOR Height 172.7 cm (5' 8 ) 05/24/2018 10:5 9 AM FILM SOUND COORDINATOR Body Mass Index 32.36 05/24/2018 10:59 AM FILM SOUND COORDINATOR Plan of Treatment Health Maintenance Due Date Last Done Comments DTaP, Tdap and Td Vaccines ( 1 - Tdap) 1961 Pneumococcal Vaccine: 50+ Ye ars (1 of 1 - PCV) 1992 Zoster Vaccines (1 of 2) 1992 Annual Medicare Wellness Visit 2007 RSV Immunization or 60+ Years (1 - 1-dose 75+ series) 2017 COVID-19 Vaccine (1 - 2023-2 5 season) 2023 Meningococcal B Vaccine Aged Out No l onger eligible based on patient's age to complete this topic Meningococcal Vaccine Aged Out No [place] eligible based on patient's age to complete this topic RSV Immunizations Under 20 Months Aged Out No longer eligible based on patient's age to complete this topic Insurance [facility] Care Teams Field Cane Scaler Helper Relationship Specialty Start Date End Date Michi Sanchez MD [address] [place] [address] PCP - General FAMILY PRACTICE 02/24/18
--- OUTSIDE RECORDS SUMMARY | 2024-08-22 00:48 | XMS_ITS | Encounter Summary ---
Author Organization [facility] Medical Group Address [address] [address] Care Team Providers Care Peoplesoft Hrms Developer Name Role Phone Michi Sanchez MD Primary Care Prov ider Michi Sanchez MD Primary Care Prov ider Encounter Details Date Type Department Care Team (Late st Contact Info) Description 07/13/2016 Orders Only [facility] ProviderLisa MD [address] [place] [address] Social History Tobacco Use Types Packs/Day Years Used Date Smoking Tobacco: Former Cigarettes Q uit: 04/24/1978 Alcohol Use Standard Drinks/Week Comments Yes 0 (1 standard drink = 0.6 oz pur e alcohol) Sex and Gender Information Value Date Recorded Sex Assigned at Not on file Legal Sex Male 9:30 AM SUPPORT DBA Gender Identity Not on file Sexual Orientation Not on file documented as of this encounter Plan of Treatment Not on file documented as of this encounter Procedures Procedure Name Priority Date/Time Associated Diagnosis Comments CARDIOLOGY REPORT 07/13/2016 documented in this encounter Results * CARDIOLOGY REPORT (07/13/2016) Anatomical Region Laterality Modality Other Narrative 07/13/2016 Ordered by an unspecified provider. Historical Provider [facility] A[facility] Final Result documented in this encounter Visit Diagnoses Not on filedocumented in this encounter Care Teams Peoplesoft Hrms Developer Relationship Specialty Start Date End Date Michi Sanchez MD [address] [place], [place] [id number] PCP - General 07/22/16 Michi Sanchez MD [address] [place] [address] PCP - General 01/20/15 07/21/16 documented as of this encounter
--- OUTSIDE RECORDS SUMMARY | 2024-08-22 00:48 | XMS_ITS | Encounter Summary ---
Author Organization [facility] Healthcare Address [address] [place] [address] Care Team Providers Care Sewing Teacher Name Role Phone Michi Sanchez MD Primary Care Prov ider Encounter Details Date Type Department Care Team (Late st Contact Info) Description 08/21/2024 Telephone [facility] Medical Group Cardiology [address] [facility] [address] [facility] [address] [place] [address] Alex Thomas MD [address] [place] [address] Social History Tobacco Use Types Packs/Day Years Used Date Smoking Tobacco: Former Cigarettes Q uit: 1975 Smokeless Tobacco: Never Alcohol Use Standard Drinks/Week Comments Yes 0 (1 standard drink = 0.6 oz pur e alcohol) Sex and Gender Information Value Date Recorded Sex Assigned at Not on file Legal Sex Male 9:30 AM COMPENSATION ADVISOR Gender Identity Not on file Sexual Orientation Not on file documented as of this encounter Miscellaneous Notes * Telephone Encounter - Tarsha Senior RN - 08/21/2024 12:32 PM CDT Faxed note as requested. * Telephone Encounter - Steff Orellana - 08/21/2024 12:21 PM CDT Eliz with GI dept at requesting most recent office visit note be faxed to their office. Thank you. Contact: documented in this encounter Plan of Treatment Not on file documented as of this encounter Visit Diagnoses Not on filedocumented in this encounter Care Teams Sewing Teacher Relationship Specialty Start Date End Date Michi Sanchez MD [address] [place] [address] PCP - General 07/22/16 documented as of this encounter
--- OUTSIDE RECORDS SUMMARY | 2024-08-22 00:48 | XMS_ITS | Encounter Summary ---
Author Organization [facility] Address [facility] [place] [address] Care Team Providers Care Event Coordinator Marketing And Sales Name Role Phone Michi Sanchez MD Primary Care Provider +1- [phone] Encounter Details Date Type Department Care Team (Latest Contact Info) Description 02/27/2018 Abstract [facility] , Camryn Mcqueen MD Social History Tobacco Use Types Packs/Day Years Used Date Smoking Tobacco: Never Assessed Sex and Gender Information Value Date Recorded Sex Assigned at Not on file Legal Sex Male 4:05 PM CDT Gender Identity Not on file Sexual Orientation Not on file documented as of this encounter Plan of Treatment Not on file documented as of this encounter Visit Diagnoses Not on filedocumented in this encounter Care Teams Event Coordinator Marketing And Sales Relationship Specialty Start Date End Date Michi Sanchez MD [address] [place] [address] PCP - General FAMILY PRACTICE 02/24/18 documented as of this encounter
--- OUTSIDE RECORDS SUMMARY | 2024-08-22 00:48 | XMS_ITS | Referral Summary ---
Author Organization [facility] [place] [place] [address] [place] [address] [address] [place] [address] Care Team Providers Care Gasoline Pump Installer Name Role Phone Michi Sanchez MD Primary Care Prov ider Encounters Date Type Department Care Team Description 08/21/2024 Telephone [facility] Medical Group Cardiology [address] [facility] [address] [place] [address] Alex Thomas MD 08/20/2024 1:45 PM CDT Office Visit [facility] Medical [facility] Cardiology [address] [place] [address] [address] [place] [address] Alex Thomas MD Coronary artery disease involving ottawa coronary artery of ottawa heart without angina pectoris (Primary Dx); History of coronary artery bypass surgery; S/P coronary artery stent placement from Last 3 Months Allergies No known active allergies Medications nitroglycerin [...] mg chewable tabletIndicati ons:Coronary artery disease involving ottawa coronary artery of ottawa heart without angina pectoris Take 1 tablet [...] Problem Noted Date Diagnosed Date Atherosclerosis of ottawa ar alissa of both lower extremities with intermittent claudication 03/09/2022 PVD (peripheral vascular disease) 02/08/2022 Assessment & Plan (03/09/2022 5:10 PM MUD JACK NOZZLEMAN): Impression: Patient complains of burning pain to [...] 05/13/2021 Assessment & Plan (03/09/2022 5:10 PM MUD JACK NOZZLEMAN): Impression: Chronic stable hyperlipidemia, controlled with statin therapy. Plan: Continue statin therapy as per primary care provider. S/P coronary artery stent placement 01/06/2021 Facet arthritis of lumbar region 03/27/2018 Lumbar disc herniation 03/27/2018 Coronary artery disease invo lving ottawa coronary artery of ottawa heart without angina pectoris 07/13/2016 Overview (09/16/2016): Coronary artery disease involving ottawa coronary artery of ottawa heart without angina pectoris History of coronary artery bypass surgery 2016 Overview (09/16/2016): S/P CABG (coronary artery bypass graft) Benign hypertension 07/13/2016 Overview (09/16/2016): HTN (hypertension), benign Assessment & Plan (03/09/2022 5:10 PM MUD JACK NOZZLEMAN): Impression: Chronic hypertension, controlled medications. Blood pressure stable. Plan: Continue blood pressure management as per primary care provider. Resolved Problems Problem Noted Date Diagnosed Date Resolved Date Dyslipidemia 07/13/2016 05/13/2021 Overview (09/16/2016): Dyslipidemia Immunizations Immunization Administration Dates Next Due Influenza, Trivalent, Preservative Free, Intramu scular 02/23/2016 Pfizer SARS-CoV-2 Monovalent Vaccination (12+ Yrs) PURPLE 06/19/2020 Social History Tobacco Use Types Packs/Day Years Used Date Smoking Tobacco: Former Cigarettes Q uit: 1975 Smokeless Tobacco: Never Tobacco Cessation:Counseling Given: Not Answered Alcohol Use Standard Drinks/Week Comments Yes 0 (1 standard drink = 0.6 oz pur e alcohol) Sex and Gender Information Value Date Recorded Sex Assigned at Not on file Legal Sex Male 9:30 AM MUD JACK NOZZLEMAN Gender Identity Not on file Sexual Orientation [...] 08/20/2024 1:41 PM CDT Plan of Treatment Not on file Insurance [facility] MEDICARE ADVANTAGE [facility] CHOICE PLUS [facility] CHOICE PLUS [place] [id number] [facility] MEDICARE ADVANTAGE Care Teams Gasoline Pump Installer Relationship Specialty Start Date End Date Michi Sanchez MD [address] [place] [address] PCP - General 07/22/16
[2024-08-22 10:46] VITALS: BP 176/59; PULSE 51; RESP 18; TEMP 36.1; O2SAT 100
[2024-08-22] MEDS: LACTATED RINGERS 1,000 ML 150 ML IV CONT (10:55)
--- NOTE | 2024-08-22 12:06 | PM.IMHP ---
H&P: HPI History of Present Illness Date/Time: 08/22/24 12:06 Chief Complaint: GERD-dysphagia Narrative: patient has been complaining of heartburn for the past 50 years, however never had endoscopy. This is associated with frequent dysphagia to solid foods and Large tablets. He takes famotidine and omeprazole with partial control of his heartburn. he has lost 30 lb In the past 2 years. He is referred for EGD. Review of Systems Review of Systems: All systems reviewed & are unremarkable except as noted in HPI and below [facility] Past Medical History Medical History (Updated 08/21/24 @ 14:14 by Jose L Mann DO) PVC (premature ventricular contraction) Family history of colonic polyps GERD (gastroesophageal reflux disease) Depression CAD (coronary artery disease) Hyperlipidemia History of colon polyps Surgical History Surgical History (Updated 08/21/24 @ 14:14 by Jose L Mann DO) History of coronary artery stent placement 2020 S/P CABG x 4 (2008) Family History Family History Sibling Diabetes mellitus Father Pancreatic cancer Mother Alzheimer disease Social History Social History (Updated 08/22/24 @ 10:56 by Jose L Mann DO) Smoking packs per day: 1 Smoking cigarettes per day: 20.0 Years smoked: 20 Smoking pack-years: 20.00 Smoking status: Never smoker Tobacco type: cigarettes Alcohol intake: former Drinks per week: 15 Alcohol use details: patient states he drinks 3 beers/day, quit 2023 Substance use: never Substance use type: does not use Living arrangements: alone Gender identity (if verbalized by the patient): Male Sexual Orientation (if Verbalized by the Patient): Straight or Heterosexual Spiritual care concerns: No Meds Home Medications and Allergies Home Medications ?Medication ?Instructions ?Recorded ?Confirmed ?Type aspirin 81 mg tablet,delayed 81 mg PO BID 03/18/20 08/22/24 History release atorvastatin 40 mg tablet 40 mg PO DAILY 03/18/20 08/22/24 History fenofibrate 160 mg tablet See Rx Instructions .Route 01/30/24 08/22/24 Rx .COMPLEX #90 tabs alprazolam 0.5 mg tablet (Xanax) 0.25 mg (1/2 x 0.5 mg) PO HS PRN 06/18/24 08/21/24 Rx Sleep, anxiety 30 days #15 tabs doxylamine succinate 25 mg tablet 25 mg PO QHS PRN sleep 06/18/24 08/21/24 History (Nighttime Sleep-Aid (doxylamine)) metoprolol succinate 25 mg 25 mg PO DAILY #90 tabs 06/18/24 08/22/24 Rx tablet,extended release 24 hr (Toprol XL) omeprazole 40 mg capsule,delayed 40 mg PO DAILY 90 days #90 caps 07/17/24 08/22/24 Rx release lisinopril 2.5 mg tablet 2.5 mg PO DAILY #30 tabs 07/19/24 08/22/24 Rx escitalopram oxalate 5 mg tablet See Rx Instructions .Route 08/06/24 08/22/24 Rx .COMPLEX #90 tabs famotidine 20 mg tablet (Acid 20 mg PO DAILY 08/21/24 08/22/24 History Controller) Allergies Allergy/AdvReac Type Severity Reaction Status Date / Time No Known Allergies Allergy Unknown Verified 08/22/24 10:45 Vital Signs Vital Signs - 24 hr 08/22/24 10:46 Temperature 97 F L Pulse Rate 51 L Respiratory Rate 18 Blood Pressure 176/59 H Pulse Oximetry 100 Oxygen Delivery Room Air Exam Const: General: cooperative and healthy appearing Resp: Effort & Inspection: normal respiratory effort and able to speak in complete sentences Auscultation: clear to auscultation bilaterally Cardio: Rate: regular rate Rhythm: regular rhythm GI: Inspection: normal to inspection GI Palp: No No hepatosplenomegaly present Auscultation: normal bowel sounds Rectal Exam: deferred Skin: General skin exam: normal color Psych: Appearance: grossly normal Mental Status: mental status grossly normal Assessment and Plan Assessment and plan (1) Dysphagia: Qualifiers: Dysphagia type: esophageal phase Qualified Code(s): R13.19 - Other dysphagia Code(s): R13.10 - Dysphagia, unspecified Status: Acute Assessment and Plan: The patient is deemed a good candidate for the procedure. Consent signed. Will proceed. (2) GERD (gastroesophageal reflux disease): Qualifiers: Esophagitis presence: esophagitis presence not specified Qualified Code(s): K21.9 - Gastro-esophageal reflux disease without esophagitis Code(s): K21.9 - Gastro-esophageal reflux disease without esophagitis Status: Acute
[2024-08-22] MEDS: SIMETHICONE ORAL SUSPENSION 20 MG/0.3 ML 30 ML BOTTLE 0.6 ML IRRIGATION (12:14)
[2024-08-22 12:26] VITALS: BP 151/74; PULSE 62; RESP 18; O2SAT 98
[2024-08-22 12:36] VITALS: BP 148/71; PULSE 64; RESP 18; O2SAT 100
[2024-08-22 12:46] VITALS: BP 154/77; PULSE 60; RESP 18; O2SAT 100
== END 2024-08-22 12:55 | disposition home or self-care (01) ==
PROVIDERS: PCP Family Medicine Adolescent Medicine; Referring Provider Nurse Practitioner Family; Visit Provider Internal Medicine Gastroenterology
PROC: 0DJ08ZZ Inspection of Upper Intestinal Tract, Via Natural or Artificial Opening Endoscopic (ICD-10-PCS; CPT 43239; principal; 2024-08-22 11:30)
DX: K21.00 Gastro-esophageal reflux disease with esophagitis, without bleeding (principal); R13.19 Other dysphagia; K44.9 Diaphragmatic hernia without obstruction or gangrene
CPT/HCPCS: 43239; 88305; J2003; J2704; J7120